=== PATIENT | male | born 1975 | race Caucasian/White ===

== ENCOUNTER 2016-06-04 13:30 | Day surgery (SDC) | payer OTHER ==
[~2016-06-04] VITALS: Ht 172.7 cm; Wt 113.4 kg
[~2016-06-04 13:30] MED LIST: CEFAZOLIN 2GM PREMIX 50 ML IV ONE; FENTANYL PF 100 MCG/2 ML VIAL. IV PRN; HYDROMORPHONE 2 MG/ML VIAL. IV PRN; IV RINGERS,LACTATED 1000ML 1,000 ML IV SCH; LIDOCAINE 1% 1 ML SYRINGE. ID PRN; MORPHINE SULFATE 2 MG/ML DISP.SYRIN. IV PRN; ONDANSETRON PF 4 MG/2 ML VIAL. IV PRN; OXYC-323 PO; PROCHLORPERAZINE 10 MG/2 ML VIAL. IV PRN
[2016-06-04] MEDS ORDERED: CEFAZOLIN 2GM PREMIX 50 ML IV ONE (14:20)
[2016-06-04] MEDS ORDERED: PROPOFOL 20 ML IV ONE (15:39)
[2016-06-04] MEDS ORDERED: ONDANSETRON PF 4 MG/2 ML VIAL. ONE (15:39)
[2016-06-04] MEDS ORDERED: DEXAMETHASONE SOD PHOS 20 MG/5 ML VIAL. ONE (15:39)
[2016-06-04] MEDS ORDERED: LIDOCAINE 2% 100 MG/5 ML DISP.SYRIN. ONE (15:39)
[2016-06-04] MEDS ORDERED: FAMOTIDINE 20 MG/2 ML VIAL ONE (15:39)
[2016-06-04] MEDS ORDERED: MIDAZOLAM HCL/PF 2 MG/2 ML VIAL. ONE (15:40)
[2016-06-04] MEDS ORDERED: FENTANYL PF 100 MCG/2 ML VIAL. ONE (15:40)
[2016-06-04] MEDS ORDERED: BUPIVACAINE MPF 0.5% 30 ML VIAL. ONE (15:42)
[2016-06-04] MEDS ORDERED: SEVOFLURANE 61 TO 120 MINUTES. IH ONE (16:56)
[2016-06-04] MEDS: FENTANYL PF 100 MCG/2 ML VIAL. IV PRN ×4 (17:06→18:16)
[2016-06-04] MEDS ORDERED: HYDR-965 PO (17:16)
--- NOTE | 2016-06-04 17:16 | DISCH ---
DISCHARGE INSTRUCTIONS Condition on Discharge Condition on Discharge: Stable Activity After Discharge Activity Instructions for Disc: Activity as tolerated Other activity instructions: no kneeling Weight Bearing Status after Di: As tolerated Diet after Discharge Diet after Discharge: Regular Wound Incision Care Wound/Incision Care: Ice to area for comfort Other wound/incision instructi: remove dressing in 3 days may then get wet in shower Contacting the DRNicole after DC Call your doctor for: Concerns you may have Follow-Up Follow up with: Juan José 10 days MARIAN VILLA MD Jun 04, 2016 17:16
[2016-06-04] MEDS ORDERED: OXYCODONE/APAP 7.5/325 TABLET. PO ONE (17:45)
[2016-06-04 18:40] VITALS: BP 143/92
--- NOTE | 2016-06-04 21:10 | PDOC ---
BRIEF OPERATIVE NOTE Date: Jun 04, 2016 Pre-Op Diagnosis retained reinforcement wire from patellar tendon repair Post-Op Diagnosis same Procedure Performed removal wire Surgeon Juan José Anesthesia Type: General Blood Loss 25cc Findings above Complications none MARIAN VILLA MD Jun 04, 2016 21:10
--- NOTE | 2016-06-04 22:42 | OP ---
DATE OF SURGERY: 06/04/2016 PREOPERATIVE DIAGNOSIS: Retained reinforcing wire status post left patellar tendon repair. POSTOPERATIVE DIAGNOSIS: Retained reinforcing wire status post left patellar tendon repair. PROCEDURE: Removal of buried wire. SURGEON: Malcom Can M.D. ANESTHESIA: General. ESTIMATED BLOOD LOSS: About 25 mL. COMPLICATIONS: None. OPERATIVE INDICATIONS: The patient is a 40-year-old male that had undergone surgery for patellar tendon repair and had had a reinforcement wire in place to protect the repair through his early rehabilitation, which is now outgrown its need or effectiveness and is mildly prominent, scheduled for removal. All his questions were answered and he understands the possibility of infection, medical or other anesthetic complications among others and the planned removal with no contemplated restrictions postoperative. OPERATIVE TECHNIQUE: The patient was identified, procedure verified, patient placed in the supine position on the operating table. After adequate amounts of general endotracheal anesthesia were administered, the left lower extremity was prepped and draped in the standard sterile fashion. A timeout was performed, the patient and procedure identified and verified. The wire was first definitively located under fluoroscopic guidance particularly the area where the wire was ____ for tightening as that would determine how to most atraumatically remove the wire from the tissue and the wire was then clipped and removed from the bone. Patellar tendon repair remained intact. Thorough irrigation was carried out with normal saline solution and layered closure accomplished with buried Vicryl suture, skin closure with nylon suture in a vertical mattress fashion. Sterile dressings were then applied. The patient was extubated and transferred to postop holding in stable condition having tolerated the procedure well. MALCOM CAN MD DR: GENNARO/carlos JOB#: [id number] / [id number]
== END 2016-06-04 18:45 | disposition home or self-care (01) ==
LOC: SURG 13:30
PROVIDERS: ATTEND Orthopaedic Surgery
DX: Z47.2 Encounter for removal of internal fixation device (principal); E66.9 Obesity, unspecified; Z87.891 Personal history of nicotine dependence
CPT/HCPCS: 20680; 76000; J0690; J1100; J2250; J2405; J2704; J3010; S0028; J3490